=== PATIENT | female | born 1975 | race Two or more races ===

== ENCOUNTER 2022-12-12 06:37 | Day surgery (SDC) | payer OTHER ==
[~2022-12-12] VITALS: Ht 162.6 cm; Wt 88.5 kg
[~2022-12-12 06:37] MED LIST: ZYRTEC10 M3 PO
== END 2022-12-12 13:15 | disposition home or self-care (01) ==
LOC: CIR.AMB 06:37
PROVIDERS: ATTEND Orthopaedic Surgery Hand Surgery
DX: G56.01 Carpal tunnel syndrome, right upper limb (principal); Z20.822 Contact with and (suspected) exposure to COVID-19